=== PATIENT | female | born 1990 | race African-American/Black ===

== ENCOUNTER 2020-10-10 17:51 | Emergency (ER) | payer MEDICAID ==
[~2020-10-10] VITALS: Ht 182.9 cm; Wt 160.6 kg
[2020-10-10 18:00] VITALS: BP_SYST 133
[2020-10-10 19:42] LABS: BILIRUBIN,URINE NEGATIVE (NEGATIVE); BLOOD, URINE NEGATIVE (NEGATIVE); COLOR,URINE YELLOW (YELLOW); GLUCOSE,URINE NEGATIVE (NEGATIVE); KETONES,URINE NEGATIVE (NEGATIVE); LEUKOCYTE ESTERASE ,URINE NEGATIVE (NEGATIVE); NITRITE, URINE NEGATIVE (NEGATIVE); PH,URINE 5.5 (5.0-8.0); PROTEIN URINE NEGATIVE (NEGATIVE); UROBILINOGEN,URINE 0.2 (0.2-1.0)
[2020-10-10 19:45] LABS: CLARITY/URINE SLIGHTLY HAZY (CLEAR)
[2020-10-10 21:16] VITALS: BP_SYST 128
[2020-10-13 00:07] LABS: CHLAMYDIA TRACHOMATIS NAA Negative (Negative); NEISSERIA GONORRHOEAE NAA Negative (Negative)
== END 2020-10-10 21:16 | disposition home or self-care (01) ==
LOC: SED 17:51
DX: L29.2 Pruritus vulvae (principal)
CPT/HCPCS: 81003; 81025; 82962; 87210-TC; 87491; 87591; 99284

== ENCOUNTER 2021-03-31 22:42 | Emergency (ER) | payer MEDICAID ==
[~2021-03-31] VITALS: Ht 182.9 cm; Wt 168.3 kg
[2021-03-31 23:40] VITALS: BP_SYST 166
[2021-04-01] MEDS ORDERED: LOPE2CAP PO (00:22)
[2021-04-01] MEDS ORDERED: ONDA4TAB5 PO (00:22)
[2021-04-01] MEDS ORDERED: LOPERAMIDE HCL 2 MG CAPSULE PO ONE (00:30)
[2021-04-01] MEDS ORDERED: ONDANSETRON 4 MG ODT TAB PO ONE (00:30)
[2021-04-01 00:51] VITALS: BP_SYST 166
== END 2021-04-01 00:51 | disposition home or self-care (01) ==
LOC: SED 22:42
DX: R11.2 Nausea with vomiting, unspecified (principal); R19.7 Diarrhea, unspecified; Z20.822 Contact with and (suspected) exposure to COVID-19; E11.9 Type 2 diabetes mellitus without complications; Z79.899 Other long term (current) drug therapy
CPT/HCPCS: 99283; Q0162; U0003; C9803

== ENCOUNTER 2021-11-27 08:17 | Emergency (ER) | payer MEDICAID, SELFPAY ==
[~2021-11-27] VITALS: Ht 182.9 cm; Wt 162.4 kg
[~2021-11-27 08:17] MED LIST: LOPE2CAP PO; ONDA4TAB5 PO
--- NOTE | 2021-11-27 08:21 | NUR ---
Patient to ER bed 6 for evaluation. Side rails up. Report given to Jyothi.
--- NOTE | 2021-11-27 08:23 | NUR ---
ER at bedside examining patient.
[2021-11-27] MEDS ORDERED: EPINEPHrine 1 MG/ML AMP IM ONE (08:30)
[2021-11-27 08:37] VITALS: BP_SYST 161
--- NOTE | 2021-11-27 08:41 | NUR ---
Pt is A&Ox4. Ambulatory with steady gait. Pupils PERRLA. All neuro checks within normal limits. Pt states she feels burning sensation on her left side of face that started last night after eating scottish nuts. Pt states she is slightly allergic to nuts but never had these symptoms before. Pt also states she also has slight sob. Lung sounds heard and are within normal limits. Pt states she has hx of DM and HTN. Connected pt to site monitor. VSS. Bed in lowest position. Epi IM given 0.3ml on left deltoid using aseptic technique.
--- NOTE | 2021-11-27 09:02 | NUR ---
offerd pain medication, pt declined, stated pain 310 after epi admin
[2021-11-27] MEDS ORDERED: EPIN0.3A9 IM (09:11)
--- NOTE | 2021-11-27 09:17 | NUR ---
Patient given written and verbal discharge instructions and verbalizes understanding. ER Dr Daugherty discussed with patient the results and treatment provided. Patient in stable condition. ID arm band removed. Rx of EPINEPHRINE given. Patient educated on pain management and to follow up with PMD. Pain Scale 3. Opportunity for questions provided and answered. Medication side effect fact sheet provided.
[2021-11-27 09:32] VITALS: BP_SYST 161
== END 2021-11-27 09:32 | disposition home or self-care (01) ==
LOC: SED 08:17
DX: L23.9 Allergic contact dermatitis, unspecified cause (principal); E11.9 Type 2 diabetes mellitus without complications; Z79.899 Other long term (current) drug therapy
CPT/HCPCS: 81025; 96372; 99283; J0171

== ENCOUNTER 2022-01-28 21:05 | Emergency (ER) | payer MEDICAID ==
[~2022-01-28] VITALS: Ht 182.9 cm; Wt 173.3 kg
[~2022-01-28 21:05] MED LIST changes: +EPIN0.3A9 IM
[2022-01-28 21:17] VITALS: BP_SYST 159
[2022-01-28] MEDS ORDERED: SULFAMETHOXAZOLE/TRIMETHOPR DS 1 TABLET PO ONE (23:15)
[2022-01-28 23:26] LABS: BILIRUBIN,URINE NEGATIVE (NEGATIVE); BLOOD, URINE 3+ (NEGATIVE); CLARITY/URINE CLEAR (CLEAR); COLOR,URINE YELLOW (YELLOW); GLUCOSE,URINE 2+ (NEGATIVE); KETONES,URINE TRACE (NEGATIVE); LEUKOCYTE ESTERASE ,URINE NEGATIVE (NEGATIVE); NITRITE, URINE NEGATIVE (NEGATIVE); PH,URINE 5.5 (5.0-8.0); PROTEIN URINE 1+ (NEGATIVE); UROBILINOGEN,URINE 0.2 (0.2-1.0)
[2022-01-28] MEDS ORDERED: VANCOMYCIN HCL 1,000 MG in NS 250 ML IV ONE (23:30)
[2022-01-28 23:32] LABS: BASOPHILS # (AUTO) 0.1 K/uL (0.0-0.2); BASOPHILS % (AUTO) 0.5 % (0.0-2.0); EOSINOPHILS # (AUTO) 0.2 K/uL (0.0-0.4); EOSINOPHILS % (AUTO) 1.4 % (0.0-4.0); HEMATOCRIT 30.5 % (36-48); HEMOGLOBIN 10.1 g/dL (12.0-16.0); LYMPHOCYTES # (AUTO) 2.4 K/uL (1.0-5.5); MEAN CORPUSCULAR HEMOGLOBIN 26 pg (27-31); MEAN CORPUSCULAR HGB CONC 33 % (32-36); MEAN CORPUSCULAR VOLUME 78 fL (79.0-98.0); MONOCYTES % (AUTO) 8.9 % (1.7-9.3); NEUTROPHILS # (AUTO) 7.3 K/uL (1.8-7.7); NEUTROPHILS % (AUTO) 67.2 % (40.0-70.0); PLATELET COUNT (AUTO) 272 K/uL (130-430); RED BLOOD CELL COUNT(AUTO) 3.92 MIL/uL (4.2-6.2); WHITE BLOOD COUNT (AUTO) 10.9 K/uL (4.8-10.8)
[2022-01-28] MEDS ORDERED: VANCOMYCIN HCL 1000 MG/VIAL IV ONE (23:35)
[2022-01-28 23:40] LABS: CALCIUM 7.7 mg/dL (8.4-11.0); CREATININE 0.79 mg/dL (0.55-1.30); POTASSIUM 4.2 mmol/L (3.5-5.1)
[2022-01-28 23:41] LABS: BACTERIA,URINE MODERATE /HPF (None Seen); RBC,URINE 0-3 /HPF (0-3); WBC,URINE 0-3 /HPF (0-3)
[2022-01-28 23:42] LABS: CALCIUM OXALATE CRYSTALS,UR 0-10 /HPF (None Seen)
[2022-01-28 23:52] LABS: ALBUMIN 2.7 g/dL (3.4-4.8); TOTAL BILIRUBIN 0.2 mg/dL (0.0-1.0)
[2022-01-29] MEDS ORDERED: TRIA15CR3 TP (00:29)
[2022-01-29] MEDS ORDERED: SULF1TAB48 PO (00:29)
[2022-01-29 02:07] VITALS: BP_SYST 161
== END 2022-01-29 02:20 | disposition home or self-care (01) ==
LOC: SED 21:05
DX: L03.115 Cellulitis of right lower limb (principal); E11.9 Type 2 diabetes mellitus without complications
CPT/HCPCS: 36415; 80053; 81000; 81025; 82962; 83605; 84702; 85025; 87040; 87086; 96365; 96366; 99284; J3370

== ENCOUNTER 2022-06-14 16:11 | Emergency (ER) | payer MEDICAID ==
[~2022-06-14] VITALS: Ht 182.9 cm; Wt 173.7 kg
[~2022-06-14 16:11] MED LIST changes: +SULF1TAB48 PO; +TRIA15CR3 TP
[2022-06-14 16:15] VITALS: BP_SYST 163
--- NOTE | 2022-06-14 17:46 | NUR ---
BROUGHT BACK TO BED #5 AND REPORT GIVEN TO DEMETRICE
--- NOTE | 2022-06-14 17:50 | NUR ---
Patient has laceration to left 5th digit medial to palm. Patient was using a foil box and her hand slipped onto the seraded edges of cutter.
[2022-06-14 18:09] VITALS: BP_SYST 163
--- NOTE | 2022-06-14 18:12 | NUR ---
SUTURE SET UP AT BEDSIDE.
[2022-06-14] MEDS ORDERED: LIDOCAINE 1% 10 MG/ML, 20 ML MDV INJ ONE (18:15)
--- NOTE | 2022-06-14 18:32 | NUR ---
Sutures completed, MD cleansed area and sutures placed
--- NOTE | 2022-06-14 18:33 | NUR ---
Patient given written and verbal discharge instructions and verbalizes understanding. ER MD discussed with patient the results and treatment provided. Patient in stable condition. ID arm band removed. IV catheter removed intact and dressing applied, no active bleeding. Rx of given. Patient educated on pain management and to follow up with PMD. Pain Scale 0/10 Opportunity for questions provided and answered. Medication side effect fact sheet provided.
== END 2022-06-14 18:34 | disposition home or self-care (01) ==
LOC: SED 16:11
DX: S61.412A Laceration without foreign body of left hand, initial encounter (principal); E11.9 Type 2 diabetes mellitus without complications; Z91.010 Allergy to peanuts; Z79.899 Other long term (current) drug therapy; W22.8XXA Striking against or struck by other objects, initial encounter; Y93.89 Activity, other specified; Y92.89 Other specified places as the place of occurrence of the external cause; Y99.8 Other external cause status
CPT/HCPCS: 99282

== ENCOUNTER 2023-08-17 08:20 | Emergency (ER) | payer MEDICAID ==
[~2023-08-17] VITALS: Ht 182.9 cm; Wt 156.5 kg
[2023-08-17 08:25] VITALS: BP_SYST 130; PULSE 84; RESP 19; TEMP 97.4; O2SAT 99
[2023-08-17] MEDS ORDERED: LIDOCAINE 1% 10 MG/ML, 20 ML MDV INJ ONE (08:45)
[2023-08-17] MEDS ORDERED: BACITRACIN 1 GM OINT TP ONE (09:09)
== END 2023-08-17 09:30 | disposition home or self-care (01) ==
LOC: SED 08:20
DX: S01.81XA Laceration without foreign body of other part of head, initial encounter (principal); E11.9 Type 2 diabetes mellitus without complications; Z79.899 Other long term (current) drug therapy; W01.198A Fall on same level from slipping, tripping and stumbling with subsequent striking against other object, initial encounter; Y93.89 Activity, other specified; Y92.89 Other specified places as the place of occurrence of the external cause; Y99.8 Other external cause status
CPT/HCPCS: 99282; 12013; J2001

== ENCOUNTER 2024-01-01 06:32 | Emergency (ER) | payer MEDICAID ==
[~2024-01-01] VITALS: Ht 182.9 cm; Wt 142.9 kg
[2024-01-01 06:48] VITALS: BP_SYST 142; PULSE 89; RESP 16; TEMP 97.5; O2SAT 100
[2024-01-01] MEDS: IBUPROFEN 600 MG TABLET PO ONE (07:08)
[2024-01-01] MEDS ORDERED: IBUP-1970 PO (08:29)
[2024-01-01 08:39] VITALS: BP_SYST 128; PULSE 88; RESP 16; TEMP 97.5; O2SAT 99
== END 2024-01-01 08:40 | disposition home or self-care (01) ==
LOC: SED 06:32
DX: S63.92XA Sprain of unspecified part of left wrist and hand, initial encounter (principal); E11.9 Type 2 diabetes mellitus without complications; Z91.010 Allergy to peanuts; Z79.899 Other long term (current) drug therapy; X58.XXXA Exposure to other specified factors, initial encounter; Y93.89 Activity, other specified; Y92.89 Other specified places as the place of occurrence of the external cause; Y99.8 Other external cause status
CPT/HCPCS: 99283